=== PATIENT | male | born 1990 | race Caucasian/White ===

== ENCOUNTER 2018-03-18 03:50 | Emergency (ER) | payer SELFPAY ==
[~2018-03-18] VITALS: Ht 172.7 cm; Wt 89.4 kg
[~2018-03-18 03:50] MED LIST: AMOXICILLIN500 MG PO
[2018-03-18 05:12] LABS: URINE BILIRUBIN - DIPSTICK NEGATIVE (NEGATIVE); URINE BLOOD DIPSTICK NEGATIVE (NEGATIVE); URINE COLOR YELLOW; URINE GLUCOSE - DIPSTICK NEGATIVE (NEGATIVE); URINE KETONE NEGATIVE (NEGATIVE); URINE LEUK ESTERASE NEGATIVE (NEGATIVE); URINE NITRITE - DIPSTICK NEGATIVE (Negative); URINE PH 5.5 (4.5-8.0); URINE PROTEIN - DIPSTICK NEGATIVE (NEG-TRACE); URINE SPECIFIC GRAVITY 1.015; URINE UROBILINOGEN - DIPSTICK 0.2 E.U./dL (0.2)
[2018-03-18 05:13] LABS: HEMATOCRIT 41.9 % (39.0-50.0); HEMOGLOBIN 14.4 g/dl (14.0-18.0); IMMATURE GRANULOCYTES 0.3 % (0.0-5.0); MEAN CELL VOLUME 88.2 fL CALC (80.0-100.0); MEAN CORPUSCULAR HGB 30.3 pG CALC (26.0-32.0); MEAN CORPUSCULAR HGB CONC 34.4 g/L CALC (32.0-36.0); NEUT# 4.67 thou/uL (1.82-7.42); RED BLOOD COUNT 4.75 mill/uL (4.70-6.10); RED CELL DISTRI WIDTH 11.9 % (11.5-15.5)
[2018-03-18 05:16] LABS: URINE CLARITY CLEAR
[2018-03-18 05:25] LABS: ALKALINE PHOSPHATASE 54 u/l (38-126); ANION GAP 12 (6-22 (CALC)); BILIRUBIN, TOTAL 0.2 mg/dL (0.0-1.4); BUN 13 mg/dL (9-20); BUN/CREATININE RATIO 19 (12-20 (CALC)); CARBON DIOXIDE 30 mmol/l (22-30); CHLORIDE 101 mmol/l (95-108); CREATININE 0.7 mg/dL (0.7-1.3); GFR > 60 ML/MIN (>=60 (CALC)); GFR FOR AFR.AMER. > 60 ML/MIN (>=60 (CALC)); POTASSIUM 4.1 mmol/l (3.5-5.1); SGOT/AST 18 u/l (17-59); SGPT/ALT 31 u/l (21-72); SODIUM 139 mmol/l (137-146); TOTAL PROTEIN 6.7 g/dL (6.3-8.2)
[2018-03-18] MEDS ORDERED: PERCOCET 5/325M1 TAB PO (06:10)
[2018-03-18] MEDS ORDERED: AMOXICILLIN500 MG PO (06:10)
[2018-03-18 06:24] VITALS: BP 141/82
== END 2018-03-18 06:24 | disposition home or self-care (01) | DRG 392 ==
LOC: ED 03:50
PROVIDERS: Emergency Medicine
DX: R10.12 Left upper quadrant pain (principal); R10.11 Right upper quadrant pain; K08.89 Other specified disorders of teeth and supporting structures; K05.10 Chronic gingivitis, plaque induced

== ENCOUNTER 2019-01-31 10:58 | Emergency (ER) | payer SELFPAY ==
[~2019-01-31] VITALS: Ht 172.7 cm; Wt 80.0 kg
[~2019-01-31 10:58] MED LIST changes: +PERCOCET 5/325M1 TAB PO
[2019-01-31] MEDS ORDERED: CORTISPORIN OTI10 M2 AU (11:57)
[2019-01-31] MEDS ORDERED: CLARITIN10 M1 PO (11:57)
[2019-01-31] MEDS ORDERED: PREDNISONE20 MG PO (11:58)
[2019-01-31 12:10] VITALS: BP 116/79
== END 2019-01-31 12:11 | disposition home or self-care (01) | DRG 156 ==
LOC: ED 10:58
PROC: 3E1B78Z Irrigation of Ear using Irrigating Substance, Via Natural or Artificial Opening (ICD-10-PCS; principal; 2019-01-31)
DX: H61.22 Impacted cerumen, left ear (principal); H60.93 Unspecified otitis externa, bilateral; L25.9 Unspecified contact dermatitis, unspecified cause

== ENCOUNTER 2019-03-19 15:26 | Emergency (ER) | payer SELFPAY ==
[~2019-03-19] VITALS: Ht 172.7 cm; Wt 88.6 kg
[~2019-03-19 15:26] MED LIST changes: +CLARITIN10 M1 PO; +CORTISPORIN OTI10 M2 AU; +PREDNISONE20 MG PO
[2019-03-19] MEDS ORDERED: DOXYCYC MONO100 M2 PO (15:51)
[2019-03-19] MEDS ORDERED: PERMETHRIN5 % EX (15:51)
[2019-03-19] MEDS ORDERED: MUPIROCIN21 TOP (15:51)
[2019-03-19 16:00] VITALS: BP 133/83
== END 2019-03-19 16:00 | disposition home or self-care (01) | DRG 607 ==
LOC: ED 15:26
DX: B86 Scabies (principal); L01.00 Impetigo, unspecified

== ENCOUNTER 2019-11-02 08:29 | Emergency (ER) | payer SELFPAY ==
[~2019-11-02 08:29] MED LIST changes: +DOXYCYC MONO100 M2 PO; +MUPIROCIN21 TOP; +PERMETHRIN5 % EX
[2019-11-02] MEDS ORDERED: ZPAK PO (10:28)
[2019-11-02] MEDS ORDERED: ALL DAY10 MG PO (10:28)
[2019-11-02 10:45] VITALS: BP 123/81
== END 2019-11-02 10:45 | disposition home or self-care (01) | DRG 153 ==
LOC: ED 08:29
DX: J06.9 Acute upper respiratory infection, unspecified (principal); J30.2 Other seasonal allergic rhinitis

== ENCOUNTER 2021-10-15 18:23 | Emergency (ER) | payer MEDICAID ==
[~2021-10-15] VITALS: Ht 172.7 cm; Wt 89.0 kg
[~2021-10-15 18:23] MED LIST changes: +ALL DAY10 MG PO; +ZPAK PO
[2021-10-15 20:03] LABS: HEMATOCRIT 44.5 % (39.0-50.0); HEMOGLOBIN 15.1 g/dl (14.0-18.0); IMMATURE GRANULOCYTES 0.1 % (0.0-5.0); MEAN CELL VOLUME 89.9 fL CALC (80.0-100.0); MEAN CORPUSCULAR HGB 30.5 pG CALC (26.0-32.0); MEAN CORPUSCULAR HGB CONC 33.9 g/dL CAL (32.0-36.0); NEUT# 5.11 thou/uL (1.82-7.42); RED BLOOD COUNT 4.95 mill/uL (4.70-6.10); RED CELL DISTRI WIDTH 12.3 % (11.5-15.5)
[2021-10-15 20:19] LABS: ALBUMIN 4.6 g/dL (3.2-5.0); ALKALINE PHOSPHATASE 56 u/l (38-126); AMYLASE 66 u/l (30-110); ANION GAP 12 (6-22 (CALC)); BILIRUBIN, TOTAL 0.3 mg/dL (0.0-1.4); BUN 14 mg/dL (9-20); BUN/CREATININE RATIO 15 (12-20 (CALC)); CARBON DIOXIDE 32 mmol/l (22-30); CHLORIDE 99 mmol/l (95-108); CREATININE 0.9 mg/dL (0.7-1.3); GFR > 60 ML/MIN (>=60 (CALC)); GFR FOR AFR.AMER. > 60 ML/MIN (>=60 (CALC)); LIPASE 71 u/l (23-300); POTASSIUM 4.4 mmol/l (3.5-5.1); SGOT/AST 23 u/l (17-59); SODIUM 139 mmol/l (137-146); TOTAL PROTEIN 7.5 g/dL (6.3-8.2)
[2021-10-15 21:44] VITALS: BP 154/90
== END 2021-10-15 21:51 | disposition home or self-care (01) ==
LOC: ED 18:23
PROVIDERS: Family Medicine
DX: S20.212A Contusion of left front wall of thorax, initial encounter (principal); K59.00 Constipation, unspecified; W50.0XXA Accidental hit or strike by another person, initial encounter; Y93.75 Activity, martial arts

== ENCOUNTER 2022-04-19 10:13 | Emergency (ER) | payer MEDICAID ==
[~2022-04-19] VITALS: Ht 172.7 cm; Wt 68.0 kg
[2022-04-19 10:26] VITALS: BP 146/95
[2022-04-19 10:30] VITALS: BP 118/66
[2022-04-19 10:45] VITALS: BP 129/87
[2022-04-19 11:00] VITALS: BP 105/60
[2022-04-19 11:11] VITALS: BP 105/60
== END 2022-04-19 12:12 | disposition home or self-care (01) ==
LOC: ED 10:13
DX: S90.31XA Contusion of right foot, initial encounter (principal); X50.0XXA Overexertion from strenuous movement or load, initial encounter; Y92.89 Other specified places as the place of occurrence of the external cause; Y99.0 Civilian activity done for income or pay

== ENCOUNTER 2024-08-17 17:59 | Emergency (ER) | payer SELFPAY ==
[~2024-08-17 17:59] MED LIST changes: +ONDANSETRON4 MG PO
== END 2024-08-17 20:49 | disposition left against medical advice (07) | DRG 951 ==
LOC: ED 17:59 → LWOBS 20:37
DX: Z53.21 Procedure and treatment not carried out due to patient leaving prior to being seen by health care provider (principal)

== ENCOUNTER 2024-10-04 10:46 | Emergency (ER) | payer SELFPAY ==
[~2024-10-04] VITALS: Ht 172.7 cm; Wt 77.0 kg
[2024-10-04 11:02] VITALS: BP 161/102
[2024-10-04] MEDS ORDERED: BACTRIM DS1 TAB PO (11:37)
[2024-10-04 11:45] VITALS: BP 161/102
== END 2024-10-04 11:53 | disposition home or self-care (01) | DRG 603 ==
LOC: ED 10:46
DX: L03.112 Cellulitis of left axilla (principal); L03.111 Cellulitis of right axilla